=== PATIENT | female | born 1955 | race Caucasian/White ===

== ENCOUNTER → 2017-01-22 | Outpatient (CLI) | payer OTHER ==
--- NOTE | ~2017-01-22 | MR104 ---
[facility] A Service of [facility] & [facility] RADIOLOGY TEXT RESULTS PATIENT: BATSHEVA DAVIS LOCATION: [facility] : 59 UNIT #: [id number] AGE: [address]: Maricel Dyson MD SEX: F ORDER DR: [id number] [facility] [address] [place], [place] [address] [id number] O MR#: [id number] Acc #: [id number] NAME: BATSHEVA DAVIS : 1955 SEX: F STUDY DATE/TIME: 01/22/2017 8:06 UNIT: [facility] ROOM: STUDY DESCRIPTION: MR Knee Wo Contrast Rt Attending Physician: Maricel Dyson M.D. Referring Physician: Maricel Dyson M.D. Ordering Physician: Maricel Dyson M.D. Primary Care Physician: Maricel Dyson M.D. MRI CENTER REPORT This report is preliminary unless electronic signature is present. EXAM MRI right knee 01/22/2017 COMPARISON STUDIES Comparison - right knee radiographs 12/19/2016. HISTORY History - order states recurrent knee pain. History sheet states anterior to medial knee pain started 1 month ago. No known trauma. No knee surgery. FINDINGS There is a minimal effusion. There is a multidirectional lobulated popliteal cyst measuring up to 5.8 cm. Patellofemoral alignment is normal. There is minimal low-grade chondromalacia of patella. There is a greater than 1 cm zone of grade 4 chondromalacia of the inferior aspect of the lateral femoral trochlear facet. Quadriceps and patellar tendons are intact. There is inflammation in the prepatellar tendon bursal region. Cruciate ligaments are intact. There is mild myxoid degeneration of the posterior horn and root of the lateral meniscus without a tear or detachment. The lateral collateral ligament complex and popliteus tendon are intact. There is a posterior root detachment of the medial meniscus with longitudinal free margin blunting/fraying of the meniscus, also. There is secondary medial meniscal subluxation and inflammation of the MCL bursa. There is low-grade chondromalacia of the weightbearing medial femoral condyle. There is marked marrow edema of the medial subarticular tibia in STS. [facility] A Service of [facility] & [facility] RADIOLOGY TEXT RESULTS PATIENT: BATSHEVA DAVIS LOCATION: [facility] : 59 UNIT #: [id number] AGE: [address]: Maricel Dysno MD SEX: F ORDER DR: association with a sizable subcortical insufficiency fracture measuring 12 mm transverse x 14 mm AP. This fracture is likely related to altered stress given the meniscal tear. IMPRESSION 1. Posterior root detachment of the medial meniscus with secondary mild medial meniscal subluxation with adjacent free margin fraying of the posterior body and horn. 2. Sizable subcortical medial tibial insufficiency fracture measuring 14 x 12 mm with marked surrounding marrow edema, likely secondary to altered stress from the meniscus tear. 3. Minimal medial compartment chondromalacia. 4. 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 5. Minimal effusion. 6. Cruciate ligaments in lateral compartment are normal. 7. Popliteal cyst. Findings called to Dr. Dyson on 01/24/2017 11:20 a.m. Copy faxed to [phone] Dyson and Dr[address] Norton 3:43 p.m. 01/24/2017 Dictated by... Alanis Norton M.D. THIS IS AN ELECTRONICALLY VERIFIED REPORT Alanis Norton M.D. at 01/25/2017 8:20 AM [facility]/p[facility] TD: 01/24/2017 15:36 JOB #: [id number] MRI CENTER REPORT Page 1 of 1 COPY
== END | disposition home or self-care (01) ==
LOC: CMRI 07:42
DX: M25.561 Pain in right knee (principal); M17.11 Unilateral primary osteoarthritis, right knee; M84.48XA Pathological fracture, other site, initial encounter for fracture; M22.41 Chondromalacia patellae, right knee; M25.461 Effusion, right knee; M71.21 Synovial cyst of popliteal space [Baker], right knee; M23.303 Other meniscus derangements, unspecified medial meniscus, right knee
CPT/HCPCS: 73721